=== PATIENT | female | born 1990 | race Caucasian/White ===

== ENCOUNTER 2021-04-28 17:31 | Emergency (ER) | payer OTHER ==
[2021-04-28] MEDS ORDERED: NORCO 5/325 MG PO ONE (18:10)
[2021-04-28] MEDS ORDERED: NORCO 5/325 MG ONE (18:20)
[2021-04-28 18:56] VITALS: PULSE 94
[2021-04-28 19:34] VITALS: BP 139/85; O2SAT 99
--- NOTE | 2021-04-28 19:44 | ERPHSYRPT ---
- History of Present Illness Time Seen by Provider: 04/28/21 17:39 Source: patient, family Exam Limitations: clinical condition Patient Subjective Stated Complaint: "I tripped on the rug and caught my foot." Triage Nursing Assessment: The patient reported that she was walking through the house two days ago when she caught her left foot on the rug in the toy room. The patient's mother reported that the fall happened two days ago and she was not made aware until this evening. The patient denied any pain at this time. She denied any tingling/numbness in the foot. Left foot with significant bruising to the level of the ankle. Blistering noted to the medial and lateral aspect of the great toe. pedal and posterior tibial pulse confirmed via doppler. Physician History: 30-year-old female with history of mental retardation tripped on something 2 days ago and bent her left foot first and second toes with bruising and blisters. Patient did not reported to mom until she noticed this evening when she took off her socks. There is bruising of the whole foot especially in the first and second toes. Mom reports patient was limping. Pain is more with walking and movements. Method of Injury: fell, twisted Occurred: days ago (2) Quality: sharpness Severity of Pain-Max: moderate Severity of Pain-Current: moderate Lower Extremities Pain: 1st toe: left, 2nd toe: left Modifying Factors: Improves With: immobilization. Worsens With: movement Allergies/Adverse Reactions: No Known Drug Allergies Allergy (Unverified 04/28/21 17:39) Hx Tetanus, Diphtheria Vaccination/Date Given: No Hx Influenza Vaccination/Date Given: No Travel Risk - International Travel Have you traveled outside of the country in past 3 weeks: No - Coronavirus Screening Are you exhibiting any of the following symptoms?: No Close contact with a COVID-19 positive Pt in past 14-21 Days: No - Vaccine Status Have you recieved a Covid-19 vaccination: No - Review of Systems Constitutional: No Symptoms Ears, Nose, & Throat: No Symptoms Respiratory: No Symptoms Cardiac: No Symptoms Musculoskeletal: Injury Neurological: No Symptoms Endocrine: No Symptoms Hematologic/Lymphatic: Easy Bruising Immunological/Allergic: No Symptoms - Past Medical History Pertinent Past Medical History: Yes Musculoskeletal History: Fractures, Osteoporosis Other Medical History: Hallermann-streiff syndrome - Past Surgical History Past Surgical History: Yes Musculoskeletal: Orthopedic Surgery Other Surgical History: Flat foot, - Social History Smoking Status: Never smoker Exposure to second hand smoke: No Drug Use: none Patient Lives Alone: No - Female History Hx Now: No - Nursing Vital Signs Nursing Vital Signs: Initial Vital Signs Temperature 98.2 F 04/28/21 17:32 Pulse Rate 108 H 04/28/21 17:32 Respiratory Rate 18 04/28/21 17:32 Blood Pressure 141/96 04/28/21 17:32 O2 Sat by Pulse Oximetry 100 04/28/21 17:32 Pain Scale Pain Intensity 0 - Physical Exam General Appearance: no apparent distress, alert Neck Exam: normal inspection, supple, full range of motion Cardiovascular/Respiratory Exam: normal breath sounds, regular rate/rhythm Ankle Exam: bilateral ankle: non-tender, normal inspection, normal range of motion Foot Exam: left foot: bone tenderness (First and second toes, distal dorsum of foot), limited range of motion, pain, soft tissue tenderness, swelling Neuro/Tendon Exam: normal sensation Mental Status Exam: alert, oriented x 3, cooperative Skin Exam: normal color SpO2 Interpretation: normal SpO2: 99 O2 Delivery: Room Air Ordered Tests: Active Orders 24 hr Category Date Time Status ANKLE (3 VIEWS) Stat Exams 04/28/21 Taken FOOT (MINIMUM 3 VIEWS) Stat Exams 04/28/21 Taken Medication Summary Discontinued Medications Generic Name Dose Route Start Last Admin Trade Name Katelynn PRN Reason Stop Dose Admin Hydrocodone Bitart/Acetaminophen 1 tab 04/28/21 18:10 04/28/21 18:21 Hydrocodone/Apap 5/325 Mg Tablet PO 04/28/21 18:11 1 tab STAT ONE Administration Hydrocodone Bitart/Acetaminophen Confirm 04/28/21 18:20 Hydrocodone/Apap 5/325 Mg Tablet Administered 04/28/21 18:21 Dose 1 tab .ROUTE .STK-MED ONE - Progress Progress: improved Progress Note: 04/28/21 19:41 Given pain medications first symptomatic relief. X-rays showed first and second toe proximal phalanx fracture with mild displacement. Discussed with Dr. Zapata who has seen the pictures and x-rays, do not think it is an open fracture but recommended postop flat shoe and outpatient follow-up. Counseled pt/family regarding: diagnosis, need for follow-up, rad results - Departure Departure Disposition: Home Clinical Impression: Toe fracture, left Qualifiers: Encounter type: initial encounter Toe: unspecified toe Fracture type: closed Fracture alignment: displaced Qualified Code(s): S92.912A - Unspecified fracture of left toe(s), initial encounter for closed fracture Condition: Stable Critical Care Time: No Referrals: RITA MAYORGA MD [Primary Care Provider] - Follow up/PCP as directed TRACY FRANCO DPM [ACTIVE STAFF] - Follow up/PCP as directed (Tomorrow for reevaluation) Instructions: Contusion (DC), Toe Fracture (DC) Additional Instructions: Take pain medications as needed. Keep it elevated, apply ice. Follow-up with podiatry for reevaluation in the morning. Return to ER for worsening. Prescriptions: Hydrocodone/Acetaminophen [Hydrocodone-Acetamin 5-325 mg] 1 tab PO Q6HPRN PRN 3 Days #12 tablet MDD 4 PRN Reason: Pain
--- NOTE | 2021-04-29 08:52 | XRAY ---
Indication: Swelling and bruising following fall one day earlier. Comparison: None 3 view left ankle demonstrates pes planus, moderate ankle/midfoot degenerative arthropathy, medial hindfoot fusion with intact hardware, and distal 1st metatarsal osteotomy with intact hardware. No other bony, articular, or soft tissue abnormalities.
--- NOTE | 2021-04-29 08:54 | XRAY ---
Indication: Swelling and bruising following fall one day earlier. Comparison: None 3 nonweightbearing views left foot demonstrates nondisplaced 1st/2nd proximal phalanx fractures with soft tissue swelling. Elsewhere pes planus, moderate ankle/midfoot degenerative arthropathy, medial hindfoot fusion with intact hardware, and distal 1st metatarsal osteotomy with intact hardware.
== END 2021-04-28 20:05 | disposition home or self-care (01) ==
LOC: ED 17:31
DX: S92.412A Displaced fracture of proximal phalanx of left great toe, initial encounter for closed fracture (principal); S92.512A Displaced fracture of proximal phalanx of left lesser toe(s), initial encounter for closed fracture; W22.8XXA Striking against or struck by other objects, initial encounter; Y92.009 Unspecified place in unspecified non-institutional (private) residence as the place of occurrence of the external cause; Q87.0 Congenital malformation syndromes predominantly affecting facial appearance; F79 Unspecified intellectual disabilities; Z79.891 Long term (current) use of opiate analgesic
CPT/HCPCS: 73610; 73630; 99283; A9270-GY